=== PATIENT | female | born 1985 | race African-American/Black ===

== ENCOUNTER 2016-06-29 12:47 | Emergency (ER) | payer OTHER ==
[~2016-06-29] VITALS: Ht 177.8 cm; Wt 113.4 kg
[2016-06-29 13:11] VITALS: BP 150/90
[2016-06-29] MEDS ORDERED: KETOROLAC TROMETH 60MG/2ML VIAL IM ONE (13:30)
[2016-06-29] MEDS ORDERED: TETANUS-DIPTH-ACEL PERTUSSIS 0.5ML SYRG IM ONE (13:30)
[2016-06-29] MEDS ORDERED: NEOMYCIN-BACITRACIN-POLYM UNITDOSE PKG TOP OINT TOP ONE (13:30)
== END 2016-06-29 14:23 | disposition home or self-care (01) ==
LOC: ER 12:54
DX: S00.83XA Contusion of other part of head, initial encounter (principal); S00.91XA Abrasion of unspecified part of head, initial encounter; M54.2 Cervicalgia; V49.9XXA Car occupant (driver) (passenger) injured in unspecified traffic accident, initial encounter; Y93.89 Activity, other specified; Y99.8 Other external cause status; Y92.89 Other specified places as the place of occurrence of the external cause; Z23 Encounter for immunization
CPT/HCPCS: 70450; 72125; 90471; 90715; 96372; 99284; J1885